=== PATIENT | male | born 1955 | race Caucasian/White ===

== ENCOUNTER → 2020-03-09 15:05 | Outpatient (CLI) | payer BC, SELFPAY ==
--- NOTE | ~2020-03-09 | CT_ITS ---
EXAMINATION:CT lung screening DATE: 03/09/2020 15:29 INDICATION: Personal history of tobacco dependence. Current smoker with 30 pack year history. TECHNIQUE: Computed tomography (CT) of the chest was performed without intravenous contrast. Automate d exposure control and iterative reconstruction technique were employed. The dose-length product (DLP ) was 160.63 mGy-cm. COMPARISON: None. FINDINGS: There is a 4 mm nodule in right lung middle lobe. There is mild scarring in paraspinal righ t lower lobe. No pleural effusion. The heart size is normal. No pericardial effusion. There is a 10 m m cyst in the liver. There is mild thoracic spondylosis. IMPRESSION: 1. Lung-RADS category 2: Benign appearance or behavior. Continue annual screening with noncontrast lo w-dose chest CT in 12 months. Reviewed, dictated and finalized at location B. [employer] IMPRESSION: 1. Lung-RADS category 2: Benign appearance or behavior. Continue annual screeni ng with noncontrast low-dose chest CT in 12 months.
== END ==
DX: Z12.2 Encounter for screening for malignant neoplasm of respiratory organs (principal); F17.210 Nicotine dependence, cigarettes, uncomplicated
CPT/HCPCS: 71271

== ENCOUNTER → 2020-10-20 12:38 | Outpatient (CLI) | payer OTHER, SELFPAY ==
--- NOTE | ~2020-10-20 | CT_ITS ---
EXAMINATION: CT abdomen pelvis wo/w con DATE: 10/20/2020 13:27 INDICATION: Hematuria, unspecified. TECHNIQUE: Computed tomography (CT) of the abdomen and pelvis was performed without and with intraven ous contrast using a total of 130 mL Omnipaque-350 intravenous contrast with a double-bolus technique for simultaneous opacification of the renal parenchyma and renal collecting system. Automated exposu re control and iterative reconstruction technique were employed. The dose-length product was 2044.39 mGy-cm. COMPARISON: Chest CT 03/09/2020 FINDINGS: The visualized portions of the lung bases are clear without pneumonia or pleural effusion. The heart size is normal. No pericardial effusion. There are cysts in the liver measuring up to 8 mm. The gallb ladder, pancreas, spleen, and adrenal glands are normal. There are cysts in the kidneys measuring up to 2.5 cm on the right. There are wedge-shaped areas of hypoenhancement in left kidney lower pole. Th ere is no urolithiasis. Right ureter is not well opacified distally, but is normal. Left ureter is no t well opacified in its middle third, but is normal. The bladder is normal. The prostate is mildly en larged. There is prominent fat in the inguinal canals that may be hernias. There are no dilated loops of bowel. The appendix is normal. There are no pathologically enlarged lymph nodes. There is no free intraperitoneal fluid. There is severe lumbar spondylosis and mild thoracic spondylosis. IMPRESSION: 1. Striated nephrogram involving left kidney lower pole, consistent with pyelonephritis versus infarc ts. Reviewed, dictated and finalized at location A. IMPRESSION: 1. Striated nephrogram involving left kidney lower pole, consistent with pyelon ephritis versus infarcts.
[2020-10-20 13:02] LABS: Estimated Glomerular Filt Rate > 60
== END ==
DX: R31.9 Hematuria, unspecified (principal); R93.422 Abnormal radiologic findings on diagnostic imaging of left kidney
CPT/HCPCS: 74178; Q9967

== ENCOUNTER → 2021-05-10 08:36 | Outpatient (CLI) | payer BC, SELFPAY ==
--- NOTE | ~2021-05-10 | CT_ITS ---
EXAMINATION: CT lung screening DATE: 05/10/2021 08:58 INDICATION: Personal history of nicotine dependence, prior smoker with 30 pack year history TECHNIQUE: Computed tomography (CT) of the chest was performed without intravenous contrast. The dose -length product (DLP) was 198.24 mGy-cm. Automated exposure control and iterative reconstruction tech [employer] were employed. COMPARISON: 03/09/2020 FINDINGS: There is a 3 mm nodule of the right middle lobe. No new pulmonary nodules are identified. T he lungs are free of acute opacities. No pathologically enlarged thoracic lymph nodes are identified. The heart size is normal. There is no pleural effusion or pneumothorax. There is mild thoracic spond ylosis. IMPRESSION: 1. Lung-RADS category 2: Benign appearance or behavior. Continue annual screening with noncontrast lo w-dose chest CT in 12 months. Reviewed, dictated and finalized at location B. IMPRESSION: 1. Lung-RADS category 2: Benign appearance or behavior. Continue annual screeni ng with noncontrast low-dose chest CT in 12 months.
== END ==
DX: Z12.2 Encounter for screening for malignant neoplasm of respiratory organs (principal); Z87.891 Personal history of nicotine dependence
CPT/HCPCS: 71271

== ENCOUNTER → 2022-05-25 09:14 | Outpatient (CLI) | payer MEDICARE, SELFPAY ==
--- NOTE | ~2022-05-25 | CT_ITS ---
EXAMINATION: CT lung screening DATE: 05/25/2022 09:32 INDICATION: Personal history of nicotine dependence, prior smoker with 40 pack year history TECHNIQUE: Computed tomography (CT) of the chest was performed without intravenous contrast. The dose -length product (DLP) was 186.81 mGy-cm. Automated exposure control and iterative reconstruction tech [employer] were employed. COMPARISON: 05/10/2021 FINDINGS: There is a stable 3 mm subpleural nodule of the right middle lobe. The lungs are free of ac jama opacities. No pleural effusion or pneumothorax. No pathologically enlarged thoracic lymph nodes a re identified. The heart size is normal. There is mild thoracic spondylosis. IMPRESSION: 1. Lung-RADS category 2: Benign appearance or behavior. Continue annual screening with noncontrast lo w-dose chest CT in 12 months. Reviewed, dictated and finalized at location B. IMPRESSION: 1. Lung-RADS category 2: Benign appearance or behavior. Continue annual screeni ng with noncontrast low-dose chest CT in 12 months.
== END ==
DX: Z12.2 Encounter for screening for malignant neoplasm of respiratory organs (principal); F17.210 Nicotine dependence, cigarettes, uncomplicated; R91.1 Solitary pulmonary nodule; C73 Malignant neoplasm of thyroid gland
CPT/HCPCS: 71271

== ENCOUNTER 2023-06-01 07:52 | Outpatient (CLI) | payer MEDICARE, SELFPAY ==
--- NOTE | ~2023-06-01 | CT_ITS ---
CT Scan of the Chest without Contrast: Clinical Indication: Thyroid cancer, lung nodule, weight loss Technique: Contiguous sections were acquired throughout the chest without intravenous contrast. Dose reduction technique was used on this scan by utilizing automated exposure control and iterative recon struction technique. The dose-length product (DLP) was 205.92 mGy-cm. Findings: There is no evidence of any significant mediastinal, hilar or axillary lymphadenopathy. The mediastin al soft tissues appear normal. There is no evidence of pleural or pericardial effusion. 3 mm right lower lobe pulmonary nodule noted, by report, likely unchanged from prior exam. No suspici ous pulmonary nodule evident. No other pulmonary nodule or consolidation identified. Images through the upper abdomen reveal no abnormalities. Impression: 3 mm right middle lobe pulmonary nodule, likely unchanged. No acute or suspicious abnormality identified. Reviewed, dictated and finalized at [facility]. Impression: 3 mm right middle lobe pulmonary nodule, likely unchanged. No acute or suspicious abnormality identified.
== END 2023-06-01 07:53 ==
LOC: MICIMG 07:53
DX: C73 Malignant neoplasm of thyroid gland (principal); F17.210 Nicotine dependence, cigarettes, uncomplicated; R63.4 Abnormal weight loss; R91.1 Solitary pulmonary nodule
CPT/HCPCS: 71250